=== PATIENT | male | born 1995 | race Caucasian/White ===

== ENCOUNTER 2019-02-02 15:13 | Day surgery (SDC) | payer OTHER, BC ==
[2019-02-02] MEDS: LACTATED RINGER'S 1,000 ML IV (15:43)
[2019-02-02] MEDS ORDERED: ROCURONIUM 50 MG INJ (17:22)
[2019-02-02] MEDS ORDERED: NEOSTIGMINE 3 MG/3 ML SYRINGE (17:22)
[2019-02-02] MEDS ORDERED: PROPOFOL 20 ML (17:22)
[2019-02-02] MEDS ORDERED: FENTAnyl 50 MCG/ML VIAL (17:22)
[2019-02-02] MEDS ORDERED: GLYCOPYRROLATE 0.4 MG INJ (17:22)
[2019-02-02] MEDS ORDERED: CEFAZOLIN 1 GM INJ (17:22)
[2019-02-02] MEDS ORDERED: ONDANSETRON 4 MG INJ (17:22)
[2019-02-02] MEDS ORDERED: MIDAZOLAM 1 MG/ML 2 ML INJ (17:22)
[2019-02-02] MEDS ORDERED: DEXAMETHASONE 4 MG/ML 5 ML INJ (17:22)
[2019-02-02] MEDS ORDERED: ROPIVACAINE 0.5 % 30 ML VIAL (17:23)
[2019-02-02] MEDS ORDERED: IPRATROPIUM (NEB) 0.5 MG/2.5 ML AMP HHN (18:30)
[2019-02-02] MEDS ORDERED: MEPERIDINE 25 MG INJ IV (18:30)
[2019-02-02] MEDS ORDERED: LABETALOL HCL 20MG INJ IV (18:30)
[2019-02-02] MEDS ORDERED: HYDROmorphONE 1 MG/5 ML IV SYRINGE IV (18:30)
[2019-02-02] MEDS ORDERED: OXYCODONE/ACETAMINOPHEN (5/325) TAB PO (18:30)
[2019-02-02] MEDS ORDERED: EPHEDrine 25 MG/5 ML SYG IV (18:30)
[2019-02-02] MEDS ORDERED: TRIMETHOBENZAMIDE 100 MG/ML VIAL IM (18:30)
[2019-02-02] MEDS ORDERED: FENTAnyl 50 MCG/ML VIAL IV ×3 (18:30)
[2019-02-02] MEDS ORDERED: MIDAZOLAM 1 MG/ML 2 ML INJ IV (18:30)
[2019-02-02] MEDS ORDERED: DIPHENHYDRAMINE 50 MG INJ IV (18:30)
[2019-02-02] MEDS ORDERED: ALBUTEROL 0.083% (NEB) 2.5 MG/3 ML AMP HHN (18:30)
[2019-02-02] MEDS: CEFAZOLIN 2 GM/50 ML (PMX) 50 ML IVPB (18:53)
[2019-02-02] MEDS ORDERED: VANCOMYCIN 1 GM (PMX) 250 ML (20:22)
[2019-02-02] MEDS: ONDANSETRON 4 MG INJ IV (21:13)
[2019-02-02] MEDS: OXYCODONE/ACETAMINOPHEN (5/325) TAB PO (21:14)
[2019-02-02] MEDS: HYDROmorphONE 1 MG/5 ML IV SYRINGE IV ×3 (21:14→21:50)
[2019-02-02] MEDS: hydrALAzine 20 MG INJ IV ×2 (21:26→21:38)
== END 2019-02-02 22:40 | disposition home or self-care (01) ==
LOC: SDS 15:13
DX: S42.021A Displaced fracture of shaft of right clavicle, initial encounter for closed fracture (principal); X58.XXXA Exposure to other specified factors, initial encounter; Y99.0 Civilian activity done for income or pay
CPT/HCPCS: 23515; 73000